=== PATIENT | male | born 1945 | race Caucasian/White ===

== ENCOUNTER 2018-01-30 07:27 | Day surgery (SDC) | payer MEDICARE, BC, SELFPAY ==
--- NOTE | 2018-01-28 09:25 | POEE_ITS ---
History of Present Illness Chief Complaint: Progressive decreased vision, right eye Narrative: Patient is a 72-year old male who presented with complaints of progressive decreased vision in both eyes, right eye worse than left. He notes significant difficulty with vision at both distance and near and has difficulty reading road signs. On examination he was noted to have bilateral nuclear cortical and posterior subcapsular cataracts with visual acuity of 20/200 in the right eye. The option of cataract surgery was offered to the patient and he felt he was symptomatic enough that he wished to proceed. NOTE: The Chief Complaint, HPI, Past Medical History, Past Surgical History, Family History, Social History, Medications, and complete Ophthalmic Exam with detailed Assessment and Plan have already been documented in the patient's outpatient ophthalmic record and are not covered again in detail here. PFSH Family History Mother TIA (transient ischemic attack) Grandmother Colon cancer Glaucoma Medical History Nuclear sclerotic cataract of right eye (Acute) Cortical cataract of right eye (Acute) Posterior subcapsular age-related cataract, right eye (Acute) Social History Smoking/Tobacco Use Status: Never Surgical History EGD - MAC (04/15/16) colostomy take down sigmoid resection Meds Home Medications Medication Instructions Recorded Confirmed Type atorvastatin 40 mg PO HS tab-cap 08/11/15 01/25/18 History metoprolol succinate 50 mg PO .12 NOON tab-cap 08/11/15 01/25/18 History nitroglycerin [Nitrostat] 0.4 mg SUBLINGUAL DIRECTED 08/11/15 01/25/18 History tab-cap omeprazole 20 mg PO DAILY tab-cap 08/11/15 01/25/18 History isosorbide mononitrate 30 mg PO DAILY 01/17/17 01/25/18 History lisinopril 5 mg PO DAILY tab-cap 01/17/17 01/25/18 History magnesium oxide 400 mg PO DAILY 01/17/17 01/25/18 History acetaminophen [Mapap Extra 1,000 mg PO Q8H #100 tab 04/23/17 01/26/18 Rx Strength] aspirin 162 mg PO BID #120 tabec 04/23/17 01/25/18 Rx indomethacin 25 mg PO TID PRN 01/25/18 01/25/18 History Allergies Allergy/AdvReac Type Severity Reaction Status Date / Time celecoxib [From Celebrex] Allergy Intermediate LIP Unverified 01/25/18 08:48 SWELLING, ITCHY PALMS penicillin V Allergy Intermediate hives Unverified 01/25/18 08:48 oxycodone HCl [From Percocet] AdvReac Mild Nausea Unverified 01/25/18 08:48 Exam OCULAR EXAM:: Visual acuity at distance: Best corrected visual acuity 20/50 OD, 20/40 OS Pupils: Pupils equal, round, and reactive without afferent pupillary defect IOP: 15 OD 16 OS Extraocular Motility: Normal Pertinent Slit Lamp Findings: Significant for pupils dilating to 6.5 mm OU. 2+ nuclear with 1+ cortical and trace posterior subcapsular cataract OU. Dilated Funduscopic Examination: Disc cupping is 0.4 OU with good color. The optic nerves have good perfusion and normal color. The retinal vasculature is normal without significant tortuosity or abnormality. The maculas are normal in appearance with normal contour and foveal reflex appropriate for age. The peripheral retina and vitreous are normal. BRIGHTNESS ACUITY TESTING (BAT):: Off right eye 20/200 Low: 20/200 Medium: 20/400 High: 20/400 Assessment and Plan (1) Posterior subcapsular age-related cataract, right eye: Current visit: No Status: Acute Assessment: Visually significant cataract, right eye. Plan: Cataract extraction with intraocular lens implantation, right eye (2) Cortical cataract of right eye: Current visit: No Status: Acute Assessment: Visually significant cataract, right eye. Plan: Cataract extraction with intraocular lens implantation, right eye (3) Nuclear sclerotic cataract of right eye: Current visit: No Status: Acute Assessment: Visually significant cataract, right eye. Plan: Cataract extraction with intraocular lens implantation, right eye Note: NOTE:: The details of the planned surgery, including the risks, indications, limitations,expectations,outcome and possible complications were explained to the patient. The patient understands the complications including, but not limited to: infection, hemorrhage, posterior dislocation of the lens or nuclear fragments which may require the intervention of a vitreoretinal surgeon, possible loss of the eye, or from anesthetic complications. The patient has been made aware of the option of not having surgery, that vision following surgery may not be equal to that prior to surgery, and that the planned surgery may not achieve the intended results. Following this discussion, which the patient appeared to understand, the patient wishes to proceed with cataract surgery with lens implantation of the affected eye to improve and maximize vision.
[2018-01-30 07:45] VITALS: BP 150/88; PULSE 83; RESP 18; TEMP 36.5; O2SAT 96
[2018-01-30] MEDS: Lidocaine 2% Jelly 6 ML SYR (09:01)
[2018-01-30] MEDS: Lidocaine 1% Pres-Free 5 ML VIAL (09:08)
[2018-01-30] MEDS: Balanced Salt Soln.-PLUS 500 ML BAG (09:09)
[2018-01-30] MEDS: Povidone-Iodine Ophth 30 ML BTL (09:23)
--- NOTE | 2018-01-30 09:33 | W.PM.DSUDISC ---
Discharge Plan Discharge Details Attending Provider: Carmelo Boggs Primary Care Provider: Carmelo Barrientos Home Meds and New Rx's Prescriptions: No Action omeprazole 10 MG capsule,delayed release(DR/EC) 20 mg PO DAILY RF: 0 nitroglycerin [Nitrostat] 0.4 MG tablet, sublingual 0.4 mg Sublingual DIRECTED RF: 0 atorvastatin 40 MG tablet 40 mg PO HS RF: 0 metoprolol succinate 50 MG tablet extended release 24 hr 50 mg PO .12 NOON RF: 0 isosorbide mononitrate 20 MG tablet 30 mg PO DAILY RF: 0 magnesium oxide 400 MG tablet 400 mg PO DAILY RF: 0 lisinopril 5 MG tablet 5 mg PO DAILY RF: 0 aspirin 81 MG tablet,delayed release (DR/EC) 162 mg PO BID Qty: 120 RF: 0 indomethacin 25 mg Capsule 25 mg PO TID PRNRF: 0 acetaminophen [Mapap Extra Strength] 500 MG tablet 1,000 mg PO Q8H PRNRF: 0 Discharge Instructions Stand Alone Forms: Post-op Topical Cataract, Aleksandra Matta (DSU) DS: Diagnosis Discharge Diagnosis (1) Posterior subcapsular age-related cataract, right eye: Status: Resolved (2) Cortical cataract of right eye: Status: Resolved (3) Nuclear sclerotic cataract of right eye: Status: Resolved (4) Status post cataract extraction and insertion of intraocular lens of right eye: Status: Chronic
--- NOTE | 2018-01-30 09:34 | W.PM.OP ---
Date of service: 01/30/18 Time of Service: 09:34 Operative Note DATE OF PROCEDURE: 01/30/18 PRE-OP DIAGNOSIS: Cataract, right eye POST-OP DIAGNOSIS: same SURGEON: Carmelo Boggs ANESTHESIA: MAC and local (sub-tenon's anesthetic infiltration) PATHOLOGY: none sent COMPLICATIONS: None Patient was transported to: same day Patient's condition: stable Implants: [employer] Pepe [employer] / [employer] Tecnis ZCB00 Indications: Progressive decreased vision due to cataract, right eye Procedure Description: CATARACT SURGERY OPERATIVE REPORT PREOPERATIVE DIAGNOSIS: Nuclear/cortical/posterior subcapsular cataract, right eye POSTOPERATIVE DIAGNOSIS: Same OPERATION: Cataract extraction using phacoemulsification with posterior chamber intraocular lens implant, right eye. IOL: IOL Consumer Insights Intern/Model: J&J Vision / ALMA Tecnis ZCB00 IOL Power: + 17.0 diopters IOL Serial Number: [id number] Optic Diameter: 6.0mm Haptic/Overall Diameter: 13.0mm PHACO INFO: Jesse Geostellarurion Vision System with OZil and Active Fluidics Cumulative Dispersed Energy (CDE): 14.34 seconds SURGEON: Carmelo Boggs MD, YUSUF ANESTHESIA: Monitored Anesthesia Care (MAC), with local sub-tenon's anesthetic infiltration COMPLICATIONS: None SPECIMENS: None INDICATIONS FOR PROCEDURE: The patient is a 72-year-old male with history of myopia who has had progressive decreased vision at both distance and near in both eyes. He has significant difficulty driving and reading road signs. Visual acuity measured 20/200 in the right eye in the presence of nuclear cortical and posterior subcapsular cataract. The option of cataract surgery was offered to the patient and he wished to proceed. PROCEDURE: The correct surgical eye was identified and marked as the right eye and the pupil was dilated in the preoperative area using mydriatics, cycloplegics, and NSAIDS (except in aspirin allergic patients). The dilated pupil size was 8.0 mm. Oral sedation was administered in the form of an Imprimis MKO Melt (midazolam 3mg/ketamine 25mg/ondansetron 2mg). The patient was brought to the operating room where cardiopulmonary monitoring was instituted and surgical time-out was performed, confirming the correct operative eye and IOL power. Topical anesthesia was administered and ophthalmic povidone-iodine 5% was instilled into the conjunctival fornices. Lidocaine gel was applied to the cornea and the andrade-ocular area was prepped with Betadine 10% solution and draped in the usual sterile fashion for intraocular surgery. Steri-strips were used to cover the lashes and lid margins and an adhesive eye drape was placed. Care was taken to isolate the lashes and lid margins under the Steri-strips and adhesive eye drape. A lid speculum was placed between the lids of the operative eye and the Jewel-Valentin operating microscope was maneuvered into position. Justin scissors were then used to make a conjunctival buttonhole approximately 6mm posterior to the limbus in the inferonasal quadrant. Blunt dissection was carried out to expose bare sclera, and a blunt-tipped sub-tenon?s anesthesia cannula was introduced and passed posteriorly along the globe where non-preserved plain lidocaine was injected into posterior sub-Tenon?s space. A sideport knife was used to make a paracentesis port at the 7:00 postion and the anterior chamber was filled with Healon GV. A 2.4mm keratome knife was used to create a half-thickness groove at the limbus and then to construct a three-plane near-clear corneal tunnel extending 2.0mm into clear cornea at the 10:00 position. A flap was raised on the anterior capsule and capsulorhexis forceps were used to complete a continuous curvilinear capsulorhexis of 5.0 mm. Balanced salt solution was then used to perform cortical cleaving hydrodissection and nuclear hydrodelineation until the lens could be freely rotated within the capsular bag. The lens nucleus was then disassembled and removed within the capsular bag and iris plane using phacoemulsification. Residual cortical material was removed using the 45-degree angled silicone I/A tip with 0.3mm port. The posterior capsule was carefully polished to remove as much residual lens epithelial cells as safely possible. The capsular bag was then inflated and the anterior chamber deepened with viscoelastic. The lens implant described above was inserted into the capsular bag using the ALMA [place] Injector. A Kuglen hook was used to dial the IOL into position. Residual viscoelastic was then removed first from posterior to the IOL, then from the anterior chamber using the I/A handpiece. The lens implant was noted to center nicely within the capsular bag. The incisions were stromally hydrated, and the anterior chamber was reformed using BSS. Then 0.4cc of moxifloxacin 1.5mg/ml were injected into the capsular bag and anterior chamber. The incisions were checked with a Weck spear and found to be secure. Several drops of ophthalmic povidone-iodine 5% were then applied to the eye followed by two drops of Imprimis combination moxifloxacin/dexamethasone solution. The drapes were removed and a clear plastic protective eye shield was placed over the eye. The patient was then returned to Same Day Surgery in stable condition.
--- NOTE | 2018-01-30 09:37 | ROE_ITS ---
Date of service: 01/30/18 Time of Service: 09:34 Operative Note DATE OF PROCEDURE: 01/30/18 PRE-OP DIAGNOSIS: Cataract, right eye POST-OP DIAGNOSIS: same SURGEON: Carmelo Boggs ANESTHESIA: MAC and local (sub-tenon's anesthetic infiltration) PATHOLOGY: none sent COMPLICATIONS: None Patient was transported to: same day Patient's condition: stable Implants: Pe[employer] Pepe Vision / [employer] Opt[employer] Tecnis ZCB00 Indications: Progressive decreased vision due to cataract, right eye Procedure Description: CATARACT SURGERY OPERATIVE REPORT PREOPERATIVE DIAGNOSIS: Nuclear/cortical/posterior subcapsular cataract, right eye POSTOPERATIVE DIAGNOSIS: Same OPERATION: Cataract extraction using phacoemulsification with posterior chamber intraocular lens implant, right eye. IOL: IOL Food Assembler Kitchen/Model: J&J Vision / ALMA Tecnis ZCB00 IOL Power: + 17.0 diopters IOL Serial Number: [id number] Optic Diameter: 6.0mm Haptic/Overall Diameter: 13.0mm PHACO INFO: Jesse CellScapeurion Vision System with OZil and Active Fluidics Cumulative Dispersed Energy (CDE): 14.34 seconds SURGEON: Carmeol Boggs MD, YUSUF ANESTHESIA: Monitored Anesthesia Care (MAC), with local sub-tenon's anesthetic infiltration COMPLICATIONS: None SPECIMENS: None INDICATIONS FOR PROCEDURE: The patient is a 72-year-old male with history of myopia who has had progressive decreased vision at both distance and near in both eyes. He has significant difficulty driving and reading road signs. Visual acuity measured 20/200 in the right eye in the presence of nuclear cortical and posterior subcapsular cataract. The option of cataract surgery was offered to the patient and he wished to proceed. PROCEDURE: The correct surgical eye was identified and marked as the right eye and the pupil was dilated in the preoperative area using mydriatics, cycloplegics, and NSAIDS (except in aspirin allergic patients). The dilated pupil size was 8.0 mm. Oral sedation was administered in the form of an Imprimis MKO Melt (midazolam 3mg/ketamine 25mg/ondansetron 2mg). The patient was brought to the operating room where cardiopulmonary monitoring was instituted and surgical time-out was performed, confirming the correct operative eye and IOL power. Topical anesthesia was administered and ophthalmic povidone-iodine 5% was instilled into the conjunctival fornices. Lidocaine gel was applied to the cornea and the andrade-ocular area was prepped with Betadine 10% solution and draped in the usual sterile fashion for intraocular surgery. Steri-strips were used to cover the lashes and lid margins and an adhesive eye drape was placed. Care was taken to isolate the lashes and lid margins under the Steri-strips and adhesive eye drape. A lid speculum was placed between the lids of the operative eye and the Jewel-Valentin operating microscope was maneuvered into position. Justin scissors were then used to make a conjunctival buttonhole approximately 6mm posterior to the limbus in the inferonasal quadrant. Blunt dissection was carried out to expose bare sclera, and a blunt-tipped sub-tenon? s anesthesia cannula was introduced and passed posteriorly along the globe where non-preserved plain lidocaine was injected into posterior sub-Tenon?s space. A sideport knife was used to make a paracentesis port at the 7:00 postion and the anterior chamber was filled with Healon GV. A 2.4mm keratome knife was used to create a half-thickness groove at the limbus and then to construct a three-plane near-clear corneal tunnel extending 2.0mm into clear cornea at the 10:00 position. A flap was raised on the anterior capsule and capsulorhexis forceps were used to complete a continuous curvilinear capsulorhexis of 5.0 mm. Balanced salt solution was then used to perform cortical cleaving hydrodissection and nuclear hydrodelineation until the lens could be freely rotated within the capsular bag. The lens nucleus was then disassembled and removed within the capsular bag and iris plane using phacoemulsification. Residual cortical material was removed using the 45-degree angled silicone I/A tip with 0.3mm port. The posterior capsule was carefully polished to remove as much residual lens epithelial cells as safely possible. The capsular bag was then inflated and the anterior chamber deepened with viscoelastic. The lens implant described above was inserted into the capsular bag using the ALMA [place] Injector. A Kuglen hook was used to dial the IOL into position. Residual viscoelastic was then removed first from posterior to the IOL, then from the anterior chamber using the I/A handpiece. The lens implant was noted to center nicely within the capsular bag. The incisions were stromally hydrated , and the anterior chamber was reformed using BSS. Then 0.4cc of moxifloxacin 1.5mg/ml were injected into the capsular bag and anterior chamber. The incisions were checked with a Weck spear and found to be secure. Several drops of ophthalmic povidone-iodine 5% were then applied to the eye followed by two drops of Imprimis combination moxifloxacin/dexamethasone solution. The drapes were removed and a clear plastic protective eye shield was placed over the eye. The patient was then returned to Same Day Surgery in stable condition.
[2018-01-30 10:00] VITALS: BP 119/68; PULSE 82; RESP 16; TEMP 36.6; O2SAT 94
== END 2018-01-30 10:10 | disposition home or self-care (01) ==
LOC: SUR 07:29
PROVIDERS: PCP Family Medicine; Visit Provider Ophthalmology
PROC: (CPT 66984; principal; 2018-01-30 09:30)
DX: H25.811 Combined forms of age-related cataract, right eye (principal); K21.9 Gastro-esophageal reflux disease without esophagitis; I10 Essential (primary) hypertension
CPT/HCPCS: 66984; V2632

== ENCOUNTER 2018-02-13 08:18 | Day surgery (SDC) | payer MEDICARE, BC, SELFPAY ==
--- NOTE | 2018-02-12 09:23 | POEE_ITS ---
History of Present Illness Chief Complaint: Progressive decreased vision, left eye Narrative: The patient is a 72-year-old male with history of progressive decreased vision in both eyes at both distance and near. He has significant difficulty with glare. On examination he was noted to have bilateral nuclear cortical and posterior subcapsular cataracts with visual acuity of 20/200. The option of cataract surgery was offered to the patient and he wished to proceed, undergoing cataract surgery in the right eye on 01/30/2018. Postoperatively he has regained uncorrected visual acuity of 20/20 in the right eye. He now presents for cataract surgery in the left eye. NOTE: The Chief Complaint, HPI, Past Medical History, Past Surgical History, Family History, Social History, Medications, and complete Ophthalmic Exam with detailed Assessment and Plan have already been documented in the patient's outpatient ophthalmic record and are not covered again in detail here. PFSH Family History Mother TIA (transient ischemic attack) Grandmother Colon cancer Glaucoma Medical History Cortical cataract of left eye (Acute) Nuclear sclerotic cataract of left eye (Acute) Posterior subcapsular age-related cataract of left eye (Acute) Social History Smoking/Tobacco Use Status: Never Surgical History Status post cataract extraction and insertion of intraocular lens of right eye ( Chronic 01/30/18) EGD - MAC (04/15/16) colostomy take down sigmoid resection Meds Home Medications Medication Instructions Recorded Confirmed Type atorvastatin 40 mg PO HS tab-cap 08/11/15 01/30/18 History metoprolol succinate 50 mg PO .12 NOON tab-cap 08/11/15 01/30/18 History nitroglycerin [Nitrostat] 0.4 mg SUBLINGUAL DIRECTED 08/11/15 01/30/18 History tab-cap omeprazole 20 mg PO DAILY tab-cap 08/11/15 01/30/18 History isosorbide mononitrate 30 mg PO DAILY 01/17/17 01/30/18 History lisinopril 5 mg PO DAILY tab-cap 01/17/17 01/30/18 History magnesium oxide 400 mg PO DAILY 01/17/17 01/30/18 History aspirin 162 mg PO BID #120 tabec 04/23/17 01/30/18 Rx indomethacin 25 mg PO TID PRN 01/25/18 01/30/18 History acetaminophen [Mapap Extra 1,000 mg PO Q8H PRN 01/30/18 01/30/18 History Strength] Allergies Allergy/AdvReac Type Severity Reaction Status Date / Time celecoxib [From Celebrex] Allergy Intermediate LIP Unverified 01/30/18 07:34 SWELLING, ITCHY PALMS penicillin V Allergy Intermediate hives Unverified 01/30/18 07:34 oxycodone HCl [From Percocet] AdvReac Mild Nausea Unverified 01/30/18 07:34 Exam OCULAR EXAM:: Visual acuity at distance: Uncorrected 20/20 right eye, 20/200 left eye Pupils: Pupils equal, round, and reactive without afferent pupillary defect IOP: 15 OD 16 OS Extraocular Motility: Normal Pertinent Slit Lamp Findings: Significant for pupils dilating to 6.5 mm OU. 2+ nuclear cataract OS with 1+ cortical and trace posterior subcapsular cataract. In the right eye there is a well-positioned PCIOL with clear posterior capsule. Dilated Funduscopic Examination: Disc cupping is 0.4 OU with good color. Normal fundus BRIGHTNESS ACUITY TESTING (BAT):: Off left eye corrected to 20/40 Low: 20/400 Medium: 20/400 High: Less than 20/400 Assessment and Plan (1) Posterior subcapsular age-related cataract of left eye: Current visit: No Status: Acute Assessment: Visually significant cataract, left eye. Plan: Cataract extraction with intraocular lens implantation, left eye (2) Nuclear sclerotic cataract of left eye: Current visit: No Status: Acute Assessment: Visually significant cataract, left eye. Plan: Cataract extraction with intraocular lens implantation, left eye (3) Cortical cataract of left eye: Current visit: No Status: Acute Assessment: Visually significant cataract, left eye. Plan: Cataract extraction with intraocular lens implantation, left eye Note: NOTE:: The details of the planned surgery, including the risks, indications, limitations,expectations,outcome and possible complications were explained to the patient. The patient understands the complications including, but not limited to: infection, hemorrhage, posterior dislocation of the lens or nuclear fragments which may require the intervention of a vitreoretinal surgeon, possible loss of the eye, or from anesthetic complications. The patient has been made aware of the option of not having surgery, that vision following surgery may not be equal to that prior to surgery, and that the planned surgery may not achieve the intended results. Following this discussion, which the patient appeared to understand, the patient wishes to proceed with cataract surgery with lens implantation of the affected eye to improve and maximize vision.
[2018-02-13 08:20] VITALS: BP 140/84; PULSE 91; RESP 18; TEMP 36; O2SAT 97
[2018-02-13] MEDS: Lidocaine 2% Jelly 6 ML SYR (09:27)
[2018-02-13] MEDS: Lidocaine 1% Pres-Free 5 ML VIAL (09:32)
[2018-02-13] MEDS: Balanced Salt Soln.-PLUS 500 ML BAG (09:32)
[2018-02-13] MEDS: Povidone-Iodine Ophth 30 ML BTL (09:50)
--- NOTE | 2018-02-13 09:58 | W.PM.DSUDISC ---
Discharge Plan Discharge Details Attending Provider: Carmelo Boggs Primary Care Provider: Carmelo Barrientos Home Meds and New Rx's Prescriptions: No Action omeprazole 10 MG capsule,delayed release(DR/EC) 20 mg PO DAILY RF: 0 nitroglycerin [Nitrostat] 0.4 MG tablet, sublingual 0.4 mg Sublingual DIRECTED RF: 0 atorvastatin 40 MG tablet 40 mg PO HS RF: 0 metoprolol succinate 50 MG tablet extended release 24 hr 50 mg PO .12 NOON RF: 0 isosorbide mononitrate 20 MG tablet 30 mg PO DAILY RF: 0 magnesium oxide 400 MG tablet 400 mg PO DAILY RF: 0 lisinopril 5 MG tablet 5 mg PO DAILY RF: 0 aspirin 81 MG tablet,delayed release (DR/EC) 162 mg PO BID Qty: 120 RF: 0 indomethacin 25 mg Capsule 25 mg PO TID PRNRF: 0 acetaminophen [Mapap Extra Strength] 500 MG tablet 1,000 mg PO Q8H PRNRF: 0 Discharge Instructions Stand Alone Forms: Post-op Topical Cataract, Aleksandra Matta (DSU) DS: Diagnosis Discharge Diagnosis (1) Posterior subcapsular age-related cataract of left eye: Status: Resolved (2) Nuclear sclerotic cataract of left eye: Status: Resolved (3) Cortical cataract of left eye: Status: Resolved (4) Status post cataract extraction and insertion of intraocular lens of left eye: Status: Chronic
--- NOTE | 2018-02-13 09:58 | W.PM.OP ---
Date of service: 02/13/18 Time of Service: 09:59 Operative Note DATE OF PROCEDURE: 02/13/18 PRE-OP DIAGNOSIS: Cataract, left eye POST-OP DIAGNOSIS: same PROCEDURE: Cataract extraction using phacoemulsification with intraocular lens implant, left eye SURGEON: Carmelo Boggs ANESTHESIA: MAC and local (sub-tenon's anesthetic infiltration) PATHOLOGY: none sent COMPLICATIONS: None Patient was transported to: same day Patient's condition: stable Implants: Pepe [employer] Pepe Vision / [employer] Tecnis ZCB00 Indications: Progressive decreased vision due to cataract, left eye Procedure Description: CATARACT SURGERY OPERATIVE REPORT PREOPERATIVE DIAGNOSIS: Nuclear/cortical/posterior subcapsular cataract, left eye, symptomatic POSTOPERATIVE DIAGNOSIS: Same OPERATION: Cataract extraction using phacoemulsification with posterior chamber intraocular lens implant, left eye. IOL: IOL Director Home/Model: J&J Vision / ALMA Tecnis ZCB00 IOL Power: + 18.0 diopters IOL Serial Number: [id number] [birth year]/08/1991 04/11/2008 Optic Diameter: 6.0mm Haptic/Overall Diameter: 13.0mm PHACO INFO: Jesse [employer]Ret[employer]urion Vision System with OZil and Active Fluidics Cumulative Dispersed Energy (CDE): 9.90 seconds SURGEON: Carmelo Boggs MD, YUSUF ANESTHESIA: Monitored Anesthesia Care (MAC), with local sub-tenon's anesthetic infiltration COMPLICATIONS: None SPECIMENS: None INDICATIONS FOR PROCEDURE: The patient is a 72-year-old male with history of myopia and symptomatic bilateral nuclear cortical and posterior subcapsular cataracts. He is already undergone cataract surgery in his right eye on 01/30/2018. He desired a mini monovision postoperative refractive target with right eye for distance, left eye for intermediate. He is doing well status post cataract surgery in his right eye and now presents for cataract surgery in the left. PROCEDURE: The correct surgical eye was identified and marked as the left eye and the pupil was dilated in the preoperative area using mydriatics, cycloplegics, and NSAIDS (except in aspirin allergic patients). The dilated pupil size was 7.0 mm. Oral sedation was administered in the form of an Imprimis MKO Melt (midazolam 3mg/ketamine 25mg/ondansetron 2mg). The patient was brought to the operating room where cardiopulmonary monitoring was instituted and surgical time-out was performed, confirming the correct operative eye and IOL power. Topical anesthesia was administered and ophthalmic povidone-iodine 5% was instilled into the conjunctival fornices. Lidocaine gel was applied to the cornea and the andrade-ocular area was prepped with Betadine 10% solution and draped in the usual sterile fashion for intraocular surgery. Steri-strips were used to cover the lashes and lid margins and an adhesive eye drape was placed. Care was taken to isolate the lashes and lid margins under the Steri-strips and adhesive eye drape. A lid speculum was placed between the lids of the operative eye and the Jewel-Valentin operating microscope was maneuvered into position. Justin scissors were then used to make a conjunctival buttonhole approximately 6mm posterior to the limbus in the inferonasal quadrant. Blunt dissection was carried out to expose bare sclera, and a blunt-tipped sub-tenon?s anesthesia cannula was introduced and passed posteriorly along the globe where non-preserved plain lidocaine was injected into posterior sub-Tenon?s space. A sideport knife was used to make a paracentesis port at the 12:00 postion and the anterior chamber was filled with Healon GV. A 2.4mm keratome knife was used to create a half-thickness groove at the limbus and then to construct a three-plane near-clear corneal tunnel extending 2.0mm into clear cornea at the 3:00 position. A flap was raised on the anterior capsule and capsulorhexis forceps were used to complete a continuous curvilinear capsulorhexis of 5.0 mm. Balanced salt solution was then used to perform cortical cleaving hydrodissection and nuclear hydrodelineation until the lens could be freely rotated within the capsular bag. The lens nucleus was then disassembled and removed within the capsular bag and iris plane using phacoemulsification. Residual cortical material was removed using the 45-degree angled silicone I/A tip with 0.3mm port. The posterior capsule was carefully polished to remove as much residual lens epithelial cells as safely possible. The capsular bag was then inflated and the anterior chamber deepened with viscoelastic. The lens implant described above was inserted into the capsular bag using the ALMA Hatley Injector. A Kuglen hook was used to dial the IOL into position. Residual viscoelastic was then removed first from posterior to the IOL, then from the anterior chamber using the I/A handpiece. The lens implant was noted to center nicely within the capsular bag. The incisions were stromally hydrated, and the anterior chamber was reformed using BSS. Then 0.4cc of moxifloxacin 1.5mg/ml were injected into the capsular bag and anterior chamber. The incisions were checked with a Weck spear and found to be secure. Several drops of ophthalmic povidone-iodine 5% were then applied to the eye followed by two drops of Imprimis combination moxifloxacin/dexamethasone solution. The drapes were removed and a clear plastic protective eye shield was placed over the eye. The patient was then returned to Same Day Surgery in stable condition.
--- NOTE | 2018-02-13 10:01 | ROE_ITS ---
Date of service: 02/13/18 Time of Service: 09:59 Operative Note DATE OF PROCEDURE: 02/13/18 PRE-OP DIAGNOSIS: Cataract, left eye POST-OP DIAGNOSIS: same PROCEDURE: Cataract extraction using phacoemulsification with intraocular lens implant, left eye SURGEON: Carmelo Boggs ANESTHESIA: MAC and local (sub-tenon's anesthetic infiltration) PATHOLOGY: none sent COMPLICATIONS: None Patient was transported to: same day Patient's condition: stable Implants: Pe[employer] Pepe Vision / [employer] Tecnis ZCB00 Indications: Progressive decreased vision due to cataract, left eye Procedure Description: CATARACT SURGERY OPERATIVE REPORT PREOPERATIVE DIAGNOSIS: Nuclear/cortical/posterior subcapsular cataract, left eye, symptomatic POSTOPERATIVE DIAGNOSIS: Same OPERATION: Cataract extraction using phacoemulsification with posterior chamber intraocular lens implant, left eye. IOL: IOL Trommel Tender/Model: J&J Vision / ALMA Tecnis ZCB00 IOL Power: + 18.0 diopters IOL Serial Number: [id number] 12/08/1991 04/11/2008 Optic Diameter: 6.0mm Haptic/Overall Diameter: 13.0mm PHACO INFO: Jesse [employer] Exoticaurion Vision System with OZil and Active Fluidics Cumulative Dispersed Energy (CDE): 9.90 seconds SURGEON: Carmelo Boggs MD, YUSUF ANESTHESIA: Monitored Anesthesia Care (MAC), with local sub-tenon's anesthetic infiltration COMPLICATIONS: None SPECIMENS: None INDICATIONS FOR PROCEDURE: The patient is a 72-year-old male with history of myopia and symptomatic bilateral nuclear cortical and posterior subcapsular cataracts. He is already undergone cataract surgery in his right eye on 01/30/2018. He desired a mini monovision postoperative refractive target with right eye for distance, left eye for intermediate. He is doing well status post cataract surgery in his right eye and now presents for cataract surgery in the left. PROCEDURE: The correct surgical eye was identified and marked as the left eye and the pupil was dilated in the preoperative area using mydriatics, cycloplegics, and NSAIDS (except in aspirin allergic patients). The dilated pupil size was 7.0 mm. Oral sedation was administered in the form of an Imprimis MKO Melt (midazolam 3mg/ketamine 25mg/ondansetron 2mg). The patient was brought to the operating room where cardiopulmonary monitoring was instituted and surgical time-out was performed, confirming the correct operative eye and IOL power. Topical anesthesia was administered and ophthalmic povidone-iodine 5% was instilled into the conjunctival fornices. Lidocaine gel was applied to the cornea and the andrade-ocular area was prepped with Betadine 10% solution and draped in the usual sterile fashion for intraocular surgery. Steri-strips were used to cover the lashes and lid margins and an adhesive eye drape was placed. Care was taken to isolate the lashes and lid margins under the Steri-strips and adhesive eye drape. A lid speculum was placed between the lids of the operative eye and the Jewel-Valentin operating microscope was maneuvered into position. Justin scissors were then used to make a conjunctival buttonhole approximately 6mm posterior to the limbus in the inferonasal quadrant. Blunt dissection was carried out to expose bare sclera, and a blunt-tipped sub-tenon? s anesthesia cannula was introduced and passed posteriorly along the globe where non-preserved plain lidocaine was injected into posterior sub-Tenon?s space. A sideport knife was used to make a paracentesis port at the 12:00 postion and the anterior chamber was filled with Healon GV. A 2.4mm keratome knife was used to create a half-thickness groove at the limbus and then to construct a three-plane near-clear corneal tunnel extending 2.0mm into clear cornea at the 3:00 position. A flap was raised on the anterior capsule and capsulorhexis forceps were used to complete a continuous curvilinear capsulorhexis of 5.0 mm. Balanced salt solution was then used to perform cortical cleaving hydrodissection and nuclear hydrodelineation until the lens could be freely rotated within the capsular bag. The lens nucleus was then disassembled and removed within the capsular bag and iris plane using phacoemulsification. Residual cortical material was removed using the 45-degree angled silicone I/A tip with 0.3mm port. The posterior capsule was carefully polished to remove as much residual lens epithelial cells as safely possible. The capsular bag was then inflated and the anterior chamber deepened with viscoelastic. The lens implant described above was inserted into the capsular bag using the ALMA Campo Injector. A Kuglen hook was used to dial the IOL into position. Residual viscoelastic was then removed first from posterior to the IOL, then from the anterior chamber using the I/A handpiece. The lens implant was noted to center nicely within the capsular bag. The incisions were stromally hydrated , and the anterior chamber was reformed using BSS. Then 0.4cc of moxifloxacin 1.5mg/ml were injected into the capsular bag and anterior chamber. The incisions were checked with a Weck spear and found to be secure. Several drops of ophthalmic povidone-iodine 5% were then applied to the eye followed by two drops of Imprimis combination moxifloxacin/dexamethasone solution. The drapes were removed and a clear plastic protective eye shield was placed over the eye. The patient was then returned to Same Day Surgery in stable condition.
[2018-02-13 10:15] VITALS: BP 116/61; PULSE 89; RESP 18; TEMP 36.6; O2SAT 95
== END 2018-02-13 10:25 | disposition home or self-care (01) ==
LOC: SUR 08:19
PROVIDERS: PCP Family Medicine; Visit Provider Ophthalmology
PROC: (CPT 66984; principal; 2018-02-13 10:30)
DX: H25.812 Combined forms of age-related cataract, left eye (principal); Z98.41 Cataract extraction status, right eye; Z96.1 Presence of intraocular lens; K21.9 Gastro-esophageal reflux disease without esophagitis; I10 Essential (primary) hypertension
CPT/HCPCS: 66984; V2632

== ENCOUNTER 2018-03-13 14:09 | Outpatient (CLI) | payer MEDICARE, BC, SELFPAY ==
--- NOTE | 2018-03-13 14:00 | DI.RAD_ITS ---
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 The left prosthesis and surrounding bone are unremarkable. There is again noted to be abnormal increased lucency around the femoral component of the prosthesis with some lateral migration of the femoral component with severe cortical thinning. Acetabular component is unremarkable. There is heterotopic bone formation around the greater trochanter. IMPRESSION: No change in appearance of righty hip prosthesis with lateral migration of the femoral component and adjacent cortical thinning.
--- NOTE | 2018-03-13 14:00 | DI.RAD_ITS ---
SYMPTOM/DIAGNOSIS: F/U LT TKA LEFT KNEE: Comparison is made with 06 May 2017. There has been no significant change in the left total knee prosthesis or surrounding bone.
== END 2018-03-13 14:29 ==
PROVIDERS: Visit Provider Student in an Organized Health Care Education/Training Program
DX: Z96.643 Presence of artificial hip joint, bilateral (principal); Z96.652 Presence of left artificial knee joint; Z47.1 Aftercare following joint replacement surgery; M25.551 Pain in right hip; T84.84XA Pain due to internal orthopedic prosthetic devices, implants and grafts, initial encounter
CPT/HCPCS: 73521; 99213; 73560

== ENCOUNTER 2018-03-29 08:57 | Observation (INO) | payer MEDICARE, BC, SELFPAY ==
[2018-03-29 09:05] VITALS: BP 155/81; PULSE 86; RESP 16; TEMP 36.5; O2SAT 98
--- NOTE | 2018-03-29 09:16 | W.ED.GENAD ---
Discharge Plan Disposition Patient Disposition: [facility]IENT Condition: Improving Discharge Details Chief Complaint: Orthopedic Clinical Impression: Acute right hip pain Primary Care Provider: Carmelo Barrientos ED Provider: James Mitchell Home Meds and New Rx's Prescriptions: No Action omeprazole 10 MG capsule,delayed release(DR/EC) 20 mg PO DAILY RF: 0 nitroglycerin [Nitrostat] 0.4 MG tablet, sublingual 0.4 mg Sublingual DIRECTED RF: 0 atorvastatin 40 MG tablet 40 mg PO HS RF: 0 metoprolol succinate 50 MG tablet extended release 24 hr 50 mg PO .12 NOON RF: 0 isosorbide mononitrate 20 MG tablet 30 mg PO DAILY RF: 0 magnesium oxide 400 MG tablet 400 mg PO DAILY RF: 0 lisinopril 5 MG tablet 5 mg PO DAILY RF: 0 aspirin 81 MG tablet,delayed release (DR/EC) 162 mg PO BID Qty: 120 RF: 0 indomethacin 25 mg Capsule 25 mg PO TID PRNRF: 0 acetaminophen [Mapap Extra Strength] 500 MG tablet 1,000 mg PO Q8H PRNRF: 0 Medical Decision Making 73-year-old male with right hip pain that accelerated through the night after he stumbled and fell in the garage yesterday evening. Did not injure himself in any other way. He has a history of a 25-year-old right hip prosthesis with a recent lateral migration and plan for revision with Dr. Gonzáles at [facility]. Over the night patient unable to bear weight. He arrives in moderate distress with reassuring vital signs, guarding of the right hip and tenderness with minimal movement and otherwise unremarkable exam. Patient was given parenteral analgesia, referred for x-ray which revealed known lateral migration of his femoral component of the prosthesis. Patient subsequent underwent CT scan to rule out occult fracture and was evaluated by Dr. Du in the emergency department who discussed with Dr Gonzáles at [facility]. Pt to have expedited followup for R hip revision with Dr. Gonzáles. The patient was offered admission which he initally thought he would decline but then subsequently requested admission due to ongoing pain and discomfort with ambulation despite use of crutches. Lab Data Lab results reviewed: Yes I reviewed the patient's lab results. Laboratory Results - last 24 hr 03/29/18 03/29/18 03/29/18 09:30 09:30 09:30 WBC 7.04 RBC 4.80 Hgb 14.0 Hct 42.2 MCV 87.9 MCH 29.2 MCHC 33.2 RDW 14.6 H Plt Count 194 MPV 10.9 Immature Gran % 0.1 Neutrophils % 76.1 Lymphocytes % 11.2 Monocytes % 8.7 Eosinophils % 3.6 Basophils % 0.3 Absolute Neutrophils 5.36 Absolute Lymphocytes 0.79 L Absolute Monocytes 0.61 Absolute Eosinophils 0.25 Absolute Basophils 0.02 APTT 24.6 Sodium 136 Potassium 3.9 Chloride 102 Carbon Dioxide 27.8 Anion Gap 6.2 BUN 19 H Creatinine 0.68 L Estimated GFR/1.73 m2 >= 60.00 Glucose 105 H Calcium 9.5 Total Bilirubin 0.8 AST 26 ALT 39 Alkaline Phosphatase 133 H Total Protein 7.1 Albumin 2.5 L HPI General Mode of arrival: ambulatory. Date/Time Provider Initiated Documentation: 03/29/18 08:59. Limitations to Documentation: no limitations. Information obtained by: patient. History of Present Illness 73 year old M presents to the emergency department with the chief complaint of Right hip pain after fall last night. , described as moderate, Quality is described as aching, and is localized to the right and lower extremity. Patient started experiencing this hour(s) and it has been constant. Immobilization improves symptom(s), Movement worsens symptoms . Patient notes no other symptoms.. Patient did receive the following treatments prior to arrival, NSAID Related Data Home Medications Medication Instructions Recorded Confirmed atorvastatin 40 mg PO HS tab-cap 08/11/15 03/13/18 metoprolol succinate 50 mg PO .12 NOON tab-cap 08/11/15 03/13/18 nitroglycerin [Nitrostat] 0.4 mg SUBLINGUAL DIRECTED 08/11/15 03/13/18 tab-cap omeprazole 20 mg PO DAILY tab-cap 08/11/15 03/13/18 isosorbide mononitrate 30 mg PO DAILY 01/17/17 03/13/18 lisinopril 5 mg PO DAILY tab-cap 01/17/17 03/13/18 magnesium oxide 400 mg PO DAILY 01/17/17 03/13/18 aspirin 162 mg PO BID #120 tabec 04/23/17 03/13/18 indomethacin 25 mg PO TID PRN 01/25/18 03/13/18 acetaminophen [Mapap Extra 1,000 mg PO Q8H PRN 01/30/18 03/13/18 Strength] Previous Rx's Medication Instructions Recorded aspirin 162 mg PO BID #120 tabec 04/23/17 Allergies Allergy/AdvReac Type Severity Reaction Status Date / Time celecoxib [From Celebrex] Allergy Intermediate LIP Verified 03/29/18 09:35 SWELLING, ITCHY PALMS penicillin V Allergy Intermediate hives Verified 03/29/18 09:35 oxycodone HCl [From Percocet] AdvReac Mild Nausea Verified 03/29/18 09:35 General Stated Complaint: Orthopedic PAULA: 4 Review of Systems Review of Systems 6 systems reviewed and otherwise negative [facility] Medical History Cortical cataract of left eye (Resolved) Nuclear sclerotic cataract of left eye (Resolved) Posterior subcapsular age-related cataract of left eye (Resolved) Surgical History Status post cataract extraction and insertion of intraocular lens of left eye (Chronic 02/13/18) Status post cataract extraction and insertion of intraocular lens of right eye (Chronic 01/30/18) EGD - MAC (04/15/16) colostomy take down sigmoid resection Family History Mother TIA (transient ischemic attack) Grandmother Colon cancer Glaucoma Social History Smoking/Tobacco Use Status: Never Exam Narrative Exam Narrative: GEN: awake, alert, oriented 3. Pleasant, well groomed, interactive. HEAD: Normocephalic, atraumatic ENT: Mucous membranes moist, oropharynx unremarkable, External ear exam unremarkable EYES: PERRL, EOMI NECK: Full ROM, no LOLA, no menigismus CHEST/RESP: Nontender, clear to auscultation bilateral, no wheeze/rhonchi/rales CARDIOVASCULAR: RRR, no murmur, rub tomy. 2+ Rad pulse bilateral ABDOMEN: Soft, nontender, no mass. +Bowel sounds EXT: 2+ DP bilaterally. Trace edema bilaterally. The right hip is tender to rotation. Patient is very guarded when attempting to move the right leg off the bed. Distal motor is 5 out of 5 bilaterally Neuro: Grossly normal neurologic exam, conversant, interactive. Psych: Speech fluent, thoughts congruent, affect normal Course Vital Signs Temperature 36.5 C 03/29/18 09:05 Pulse 86 03/29/18 09:05 Respiratory Rate 16 03/29/18 09:05 Blood Pressure 155/81 H 03/29/18 09:05 Pulse Oximetry 98 03/29/18 09:05 Temperature 36.5 C 03/29/18 09:05 Temperature Source Skin 03/29/18 09:05 Pulse 86 03/29/18 09:05 Respiratory Rate 16 03/29/18 09:05 Respiratory Effort 03/29/18 09:08 Blood Pressure 155/81 H 03/29/18 09:05 Blood Pressure Position Sitting 03/29/18 09:05 Pulse Oximetry 98 03/29/18 09:05 Oxygen Delivery Method Room Air 03/29/18 09:05 Oxygen Flow Rate 0 03/29/18 09:05 Pain Level 4 03/29/18 09:05
--- NOTE | 2018-03-29 09:19 | ED.GENADUL_ITS ---
Discharge Plan Disposition Patient Disposition: [facility] INPATIENT Condition: Improving Discharge Details Chief Complaint: Orthopedic Clinical Impression: Acute right hip pain Primary Care Provider: Carmelo Barrientos ED Provider: James Mitchell Home Meds and New Rx's Prescriptions: No Action omeprazole 10 MG capsule,delayed release(DR/EC) 20 mg PO DAILY RF: 0 nitroglycerin [Nitrostat] 0.4 MG tablet, sublingual 0.4 mg Sublingual DIRECTED RF: 0 atorvastatin 40 MG tablet 40 mg PO HS RF: 0 metoprolol succinate 50 MG tablet extended release 24 hr 50 mg PO .12 NOON RF: 0 isosorbide mononitrate 20 MG tablet 30 mg PO DAILY RF: 0 magnesium oxide 400 MG tablet 400 mg PO DAILY RF: 0 lisinopril 5 MG tablet 5 mg PO DAILY RF: 0 aspirin 81 MG tablet,delayed release (DR/EC) 162 mg PO BID Qty: 120 RF: 0 indomethacin 25 mg Capsule 25 mg PO TID PRNRF: 0 acetaminophen [Mapap Extra Strength] 500 MG tablet 1,000 mg PO Q8H PRNRF: 0 Medical Decision Making 73-year-old male with right hip pain that accelerated through the night after he stumbled and fell in the garage yesterday evening. Did not injure himself in any other way. He has a history of a 25-year-old right hip prosthesis with a recent lateral migration and plan for revision with Dr. Gonzáles at [facility]. Over the night patient unable to bear weight. He arrives in moderate distress with reassuring vital signs, guarding of the right hip and tenderness with minimal movement and otherwise unremarkable exam. Patient was given parenteral analgesia, referred for x-ray which revealed known lateral migration of his femoral component of the prosthesis. Patient subsequent underwent CT scan to rule out occult fracture and was evaluated by Dr. Du in the emergency department who discussed with Dr Gonzáles at [facility]. Pt to have expedited followup for R hip revision with Dr. Gonzáles. The patient was offered admission which he initally thought he would decline but then subsequently requested admission due to ongoing pain and discomfort with ambulation despite use of crutches. Lab Data Lab results reviewed: Yes I reviewed the patient's lab results. Laboratory Results - last 24 hr 03/29/18 03/29/18 03/29/18 09:30 09:30 09:30 WBC 7.04 RBC 4.80 Hgb 14.0 Hct 42.2 MCV 87.9 MCH 29.2 MCHC 33.2 RDW 14.6 H Plt Count 194 MPV 10.9 Immature Gran % 0.1 Neutrophils % 76.1 Lymphocytes % 11.2 Monocytes % 8.7 Eosinophils % 3.6 Basophils % 0.3 Absolute Neutrophils 5.36 Absolute Lymphocytes 0.79 L Absolute Monocytes 0.61 Absolute Eosinophils 0.25 Absolute Basophils 0.02 APTT 24.6 Sodium 136 Potassium 3.9 Chloride 102 Carbon Dioxide 27.8 Anion Gap 6.2 BUN 19 H Creatinine 0.68 L Estimated GFR/1.73 m2 >= 60.00 Glucose 105 H Calcium 9.5 Total Bilirubin 0.8 AST 26 ALT 39 Alkaline Phosphatase 133 H Total Protein 7.1 Albumin 2.5 L HPI General Mode of arrival: ambulatory . Date/Time Provider Initiated Documentation: 03/29/18 08:59 . Limitations to Documentation: no limitations . Information obtained by: patient . History of Present Illness 73 year old M presents to the emergency department with the chief complaint of Right hip pain after fall last night. , described as moderate, Quality is described as aching, and is localized to the right and lower extremity. Patient started experiencing this hour(s) and it has been constant. Immobilization improves symptom(s), Movement worsens symptoms . Patient notes no other symptoms.. Patient did receive the following treatments prior to arrival, NSAID Related Data Home Medications Medication Instructions Recorded Confirmed atorvastatin 40 mg PO HS tab-cap 08/11/15 03/13/18 metoprolol succinate 50 mg PO .12 NOON tab-cap 08/11/15 03/13/18 nitroglycerin [Nitrostat] 0.4 mg SUBLINGUAL DIRECTED 08/11/15 03/13/18 tab-cap omeprazole 20 mg PO DAILY tab-cap 08/11/15 03/13/18 isosorbide mononitrate 30 mg PO DAILY 01/17/17 03/13/18 lisinopril 5 mg PO DAILY tab-cap 01/17/17 03/13/18 magnesium oxide 400 mg PO DAILY 01/17/17 03/13/18 aspirin 162 mg PO BID #120 tabec 04/23/17 03/13/18 indomethacin 25 mg PO TID PRN 01/25/18 03/13/18 acetaminophen [Mapap Extra 1,000 mg PO Q8H PRN 01/30/18 03/13/18 Strength] Previous Rx's Medication Instructions Recorded aspirin 162 mg PO BID #120 tabec 04/23/17 Allergies Allergy/AdvReac Type Severity Reaction Status Date / Time celecoxib [From Celebrex] Allergy Intermediate LIP Verified 03/29/18 09:35 SWELLING, ITCHY PALMS penicillin V Allergy Intermediate hives Verified 03/29/18 09:35 oxycodone HCl [From Percocet] AdvReac Mild Nausea Verified 03/29/18 09:35 General Stated Complaint: Orthopedic PAULA: 4 Review of Systems Review of Systems 6 systems reviewed and otherwise negative [facility] Medical History Cortical cataract of left eye (Resolved) Nuclear sclerotic cataract of left eye (Resolved) Posterior subcapsular age-related cataract of left eye (Resolved) Surgical History Status post cataract extraction and insertion of intraocular lens of left eye (Chronic 02/13/18) Status post cataract extraction and insertion of intraocular lens of right eye (Chronic 01/30/18) EGD - MAC (04/15/16) colostomy take down sigmoid resection Family History Mother TIA (transient ischemic attack) Grandmother Colon cancer Glaucoma Social History Smoking/Tobacco Use Status: Never Exam Narrative Exam Narrative: GEN: awake, alert, oriented 3. Pleasant, well groomed, interactive. HEAD: Normocephalic, atraumatic ENT: Mucous membranes moist, oropharynx unremarkable, External ear exam unremarkable EYES: PERRL, EOMI NECK: Full ROM, no LOLA, no menigismus CHEST/RESP: Nontender, clear to auscultation bilateral, no wheeze/rhonchi/rales CARDIOVASCULAR: RRR, no murmur, rub tomy. 2+ Rad pulse bilateral ABDOMEN: Soft, nontender, no mass. +Bowel sounds EXT: 2+ DP bilaterally. Trace edema bilaterally. The right hip is tender to rotation. Patient is very guarded when attempting to move the right leg off the bed. Distal motor is 5 out of 5 bilaterally Neuro: Grossly normal neurologic exam, conversant, interactive. Psych: Speech fluent, thoughts congruent, affect normal Course Vital Signs Temperature 36.5 C 03/29/18 09:05 Pulse 86 03/29/18 09:05 Respiratory Rate 16 03/29/18 09:05 Blood Pressure 155/81 H 03/29/18 09:05 Pulse Oximetry 98 03/29/18 09:05 Temperature 36.5 C 03/29/18 09:05 Temperature Source Skin 03/29/18 09:05 Pulse 86 03/29/18 09:05 Respiratory Rate 16 03/29/18 09:05 Respiratory Effort 03/29/18 09:08 Blood Pressure 155/81 H 03/29/18 09:05 Blood Pressure Position Sitting 03/29/18 09:05 Pulse Oximetry 98 03/29/18 09:05 Oxygen Delivery Method Room Air 03/29/18 09:05 Oxygen Flow Rate 0 03/29/18 09:05 Pain Level 4 03/29/18 09:05
[2018-03-29 09:37] LABS: Abs Immature Grans 0.01 k/cumm (0.0-0.09); Absolute Basophil Count 0.02 k/cumm (0.0-0.2); Absolute Eosinophil Count 0.25 k/cumm (0.0-0.7); Absolute Lymphocyte Count 0.79 k/cumm (1.2-3.4); Absolute Monocyte Count 0.61 k/cumm (0.11-0.7); Absolute Neutrophil Count 5.36 k/cumm (1.2-6.7); Basophils % 0.3; Eosinophils % 3.6; HCT 42.2 % (40.0-50.0); Immature Grans % 0.1; Lymphocytes % 11.2; Mean Corp. HGB Concentration 33.2 g/dL (32.0-36.0); Mean Corpuscular Hemoglobin 29.2 pg (27.0-33.0); Mean Corpuscular Volume 87.9 fL (80-95); Mean Platelet Volume 10.9 fL (8.0-11.0); Monocytes % 8.7; Neutrophils % 76.1; Platelet Count 194 x1000/uL (130-400); RBC Distribution Width 14.6 % (11.8-14.1); White Blood Cell Count 7.04 k/cumm (4.4-10.8)
[2018-03-29] MEDS: Normal Saline 1,000 ML 150 ML IV ×2 (09:38→18:35)
[2018-03-29] MEDS: MORPHine 10 MG/ML VIAL 2 MG IVP (09:39)
[2018-03-29] MEDS: Normal Saline Flush 10 ML SYR IVP (09:39)
[2018-03-29 09:51] LABS: ALT 39 U/L (12-78); AST 26 U/L (15-37); Albumin 2.5 g/dL (3.4-5.0); Alkaline Phosphatase 133 U/L (46-116); Anion Gap 6.2 mmol/L (3-11); BUN 19 mg/dL (7-18); Bilirubin, Total 0.8 mg/dL (0.2-1.0); CO2 27.8 mmol/L (21.0-32.0); CREATININE 0.68 mg/dL (0.70-1.30); Calcium 9.5 mg/dL (8.5-10.1); Chloride 102 mmol/L (98-107); Glucose 105 mg/dL (70-100); Potassium 3.9 mmol/L (3.5-5.1); Sodium 136 mmol/L (136-145); Total Protein 7.1 g/dL (6.4-8.2)
[2018-03-29 09:55] LABS: PTT Activated 24.6 sec (21.0-31.4)
--- NOTE | 2018-03-29 09:58 | DI.RAD_ITS ---
SYMPTOMS/DIAGNOSIS: RIGHT HIP PAIN, H/O LATERAL MIGRATION OF PROSTHESIS RIGHT HIP: Four views were obtained. Examination was compared with previous examination of 03/13/18, which showed deformity of the proximal femoral metaphysis associated with increased angulation of femoral component of hip prosthesis. Thin lucency is noted adjacent to the tip of the femoral prosthesis, which appears to represent a nondisplaced cortical fracture; this was also probably present on the previous examination. No gross interval change in alignment. Acetabular component remains well seated.
[2018-03-29] MEDS: Ketorolac 15 MG/ML VIAL IVP (10:45)
[2018-03-29 11:14] VITALS: BP 125/60; PULSE 84; RESP 16; O2SAT 96
--- NOTE | 2018-03-29 11:36 | DI.CT_ITS ---
SYMPTOMS/DIAGNOSIS: PERIPROSTHETIC PAIN, ? FX RIGHT HIP CT: CT examination of the hip was performed utilizing multislice acquisition and multiplanar reconstruction. There is a right hip prosthesis in position. The femoral component of the prosthesis has previously been noted to be laterally displaced and angulated with associated periimplant lucency and small focus of linear nondisplaced cortical fracture at the tip of the femoral prosthesis. Alignment appears unchanged in comparison with previous radiographs. No abnormality of the acetabular component seen. No additional finding.
--- NOTE | 2018-03-29 13:47 | OCONE_ITS ---
Date of service: 03/29/18 Time of Service: 13:44 History of Present Illness Chief Complaint: R Hip Pain Narrative: Edward is a 73-year-old who I am quite familiar with. I have been following his right hip for pain in the setting of loosening, polyethylene wear, and osteolysis. In addition, I have performed a left anterior total hip arthroplasty and a left knee replacement. He has been having some increasing pain of the right hip. I saw him just a few weeks ago in the office for the right hip. There have been no gross changes but continued osteolysis seen around femoral component with some changes seen around the acetabulum. He was having increasing pain and was required to use a crutch occasionally. Unfortunately, he fell and landed directly onto the right knee last night around 8:00. He had immediate pain. The pain was in the groin. It has been persistent since this time. He has had to use crutches and is really unable to place any weight on the right leg. He reports a cramping sensation as well with any movement of the leg. He denies any numbness or tingling. He denies any fever or chills. He has had no shortness of breath nor chest pain. The location of the pain is within the groin and to a lesser extent the proximal femur. Consults Consult date: 03/29/18 Requesting physician: James Mitchell Consult Reason Right Hip Pain Assessment and Plan (1) Chronic hip pain after total replacement of right hip joint: Current visit: No Status: Acute Edward is a 73-year-old perez who has had the acute onset of worsening right hip and groin pain. This right hip is a known problem has been causing some pain and is on the verge of failure giving significant amounts of ostial lysis. He was scheduled for an appointment at [facility] in about 3 weeks. Unf ortunately, he landed directly onto the right knee transmitting force into the right hip. Since that time, he has been unable to bear any significant weight nor move the hip. The x-ray and CT scan is reassuring. However, I am concerned about possible fracture of the polythene component or subtle fracture not identified. He has never had signs of infection and this had been tested previously but I will check a C-reactive protein. He is unable to mobilize currently at this time. I will reach out to [facility] to evaluate possible options as I am not sure what the next step would be. Ultimately, he needs to have a revision of his right hip. His CRP is normal. After discussing the case with [facility], they agree he needs revision, but the soonest would be this weekend or next week. Edward will attempt to mobilizie with crutches/walker and with pain control. If he is able to mobilize enough, then he may discharge to home and he will be set up for hip revision. He has had a recent H&P performed in February which identified no areas for pre-op management. He has had no recent chest pain or need to use Nitro. He has preimary hypertension and GERD. Review of Systems Review of Systems All systems reviewed & are unremarkable except as noted in HPI and below [facility] Medical History Cortical cataract of left eye (Resolved) Nuclear sclerotic cataract of left eye (Resolved) Posterior subcapsular age-related cataract of left eye (Resolved) Surgical History Status post cataract extraction and insertion of intraocular lens of left eye (Chronic 02/13/18) Status post cataract extraction and insertion of intraocular lens of right eye (Chronic 01/30/18) EGD - MAC (04/15/16) colostomy take down sigmoid resection Family History Mother TIA (transient ischemic attack) Grandmother Colon cancer Glaucoma Social History Smoking/Tobacco Use Status: Never Exam Const General: cooperative, healthy appearing, well groomed and in distress mild Extrem Other: Evaluation of the right lower extremity shows no overlying skin changes. There is no ecchymosis. There may be some swelling seen proximally but it is hard to say. I palpate no masses or signs of hernia. There is some mild pain to palpation. There is some pain to palpation over the proximal, lateral femur but not exquisitely so. He has no pain along the leg itself or the knee. He really tolerates no motion. I am unable to either logroll or flex the hip passively without exquisite pain. He points to the groin as the location of this pain. He endorses full sensation over both femoral and sciatic nerve distributions. His foot is warm well perfused. He has intact ankle dorsiflexion, ankle plantarflexion, great toe extension and great toe flexion. His calf is soft and without pain. It is difficult to examine the knee given the amount of pain is in at the level of the hip. There is no obvious break in the skin nor ecchymosis or swelling seen about the right knee. Results Last Vital Signs Temp 36.5 C 03/29/18 09:05 Pulse 84 03/29/18 11:14 Resp 16 03/29/18 11:14 BP 125/60 03/29/18 11:14 Pulse Ox 96 03/29/18 11:14 Labs : 03/29/18 09:30 03/29/18 09:30 Laboratory Results - last 24 hr 03/29/18 03/29/18 03/29/18 09:30 09:30 09:30 WBC 7.04 RBC 4.80 Hgb 14.0 Hct 42.2 MCV 87.9 MCH 29.2 MCHC 33.2 RDW 14.6 H Plt Count 194 MPV 10.9 Immature Gran % 0.1 Neutrophils % 76.1 Lymphocytes % 11.2 Monocytes % 8.7 Eosinophils % 3.6 Basophils % 0.3 Absolute Neutrophils 5.36 Absolute Lymphocytes 0.79 L Absolute Monocytes 0.61 Absolute Eosinophils 0.25 Absolute Basophils 0.02 APTT 24.6 Sodium 136 Potassium 3.9 Chloride 102 Carbon Dioxide 27.8 Anion Gap 6.2 BUN 19 H Creatinine 0.68 L Estimated GFR/1.73 m2 >= 60.00 Glucose 105 H Calcium 9.5 Total Bilirubin 0.8 AST 26 ALT 39 Alkaline Phosphatase 133 H Total Protein 7.1 Albumin 2.5 L Imaging Imaging Studies: X-ray of the right hip shows a laterally migrated femoral component with lysis around the femoral stem, proximally to the trochanter, and smaller areas around the acetabulum. There is asymmetry with the position of the femoral head within the acetabular component. There is no true fracture seen. CT scan of the right hip and pelvis demonstrates the above findings. The very distal aspect of the stem seems to be associated with a small crack in the lateral cortex of the femur but no complete fracture is seen. There are areas of lysis around the femoral component and the acetabulum. Again, there is no clear fracture identified in the acetabular component or within the proximal femur. Significant amounts of heterotopic ossification is present. The femoral head is nearly articulating with the metal of the acetabular component but I do not see any shadows suggesting a displaced polyethylene component or a broken femoral neck.
[2018-03-29 14:10] LABS: C-Reactive Protein 0.23 mg/dL (0.0-0.3)
[2018-03-29 16:06] LABS: ESR 10 MM/HR (1-20)
[2018-03-29 16:30] VITALS: BP 131/67; PULSE 84; RESP 18; TEMP 36.8; O2SAT 96
[2018-03-29 17:00] VITALS: BP 134/65; PULSE 94; RESP 20; TEMP 36.3; O2SAT 98
[2018-03-29 17:21] VITALS: BP 134/65; PULSE 94; RESP 20; TEMP 36.3; O2SAT 98
--- NOTE | 2018-03-29 17:45 | NUR.NOTE ---
Patient admitted to the unit from ER. He gave history of falling yesterday while at home yesterday does state he is having spasms to the affected right leg. Patient is conscious and alert, breathing spontaneously on room air. Redness noted to the cheeks and nose. Chest clear, abdomen soft nontender to touch, well healed scar noted to the left knee. Pain to the right groin area but no abvious deformity noted. Pt noted with TEDS on bilateral pedal oedma to the lower extremities.
[2018-03-29] MEDS: Acetaminophen 500 MG TAB 1000 MG PO (19:43)
[2018-03-29 20:12] VITALS: BP 142/70; PULSE 88; RESP 18; TEMP 36.1; O2SAT 96
[2018-03-29] MEDS: Atorvastatin 40 MG TAB PO (21:54)
[2018-03-29] MEDS: Diazepam 5 MG TAB PO (21:54)
[2018-03-30 00:09] VITALS: BP 160/81; PULSE 88; RESP 18; TEMP 36.4; O2SAT 98
[2018-03-30] MEDS: Normal Saline 1,000 ML 150 ML IV ×2 (01:00→08:07)
[2018-03-30] MEDS: Ketorolac 15 MG/ML VIAL IVP ×2 (08:34→14:15)
[2018-03-30] MEDS: Isosorbide Mononitrate 30 MG TABCR PO (08:35)
[2018-03-30] MEDS: Omeprazole 20 MG CAPCR PO (08:35)
[2018-03-30] MEDS: Magnesium Oxide 400 MG TAB PO (08:35)
[2018-03-30] MEDS: Acetaminophen 500 MG TAB 1000 MG PO ×2 (08:35→14:14)
[2018-03-30] MEDS: Lisinopril 5 MG TAB PO (08:35)
[2018-03-30] MEDS: Normal Saline Flush 10 ML SYR IVP ×2 (08:38→14:15)
--- NOTE | 2018-03-30 09:32 | PT.INIE ---
Date of service: 03/30/18 Time of Service: 09:32 PT Notes Inpatient Physical Therapy Evaluation Date: 03/30/2018 Referring Doctor: Emiliano Du MD PT Orders: PT CONSULT: S/P fall with periprosthetic right hip fracture, surgery next week. TDWB RLE?walker or crutches Precautions: TDWB R LE, fall precautions Patient Profile/Admitting Diagnosis: Patient is a 73-year-old male experiencing lateral migration of right hip prosthesis of RUDOLPH and osteolysis around for a femoral component, patient sustained a fall 2011 landing on right knee causing groin pain, patient admitted to [facility] for pain control and imaging, CT scan displays non-displaced cortical fracture tip of right femoral prosthesis. Per orthopedics patient will have to have RUDOLPH revision at [facility] next week. 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 Baseline mobility independent gait with no device, occasionally uses a cane, independent with ADLS Equipment owned/DME: cane, FWW, crutches, shower chair, commode, grab bars in bathroom Subjective: Patient lying in bed states he was able to get up with nursing last night, agreeable to PT consult. States he can move okay as long as he does not have spasms. Objective: General Observation: K pad heat to right hip Mental Status: A and O x3 Pain: 5/10 pain right hip with movement, RN notified Bed Mobility/Transfers: Patient instructed in touchdown weightbearing right lower extremity for transfers, use axillary crutches at all times. Patient states he prefers crutches over walker. Supine to sit: Independent, patient using upper extremities to assist right lower extremity to edge of bed Sit to stand: Independent with axillary crutches Stand to sit: Independent Bed to chair: Independent with axillary crutches Gait: Independent with axillary crutches, touchdown weightbearing right lower extremity, 200 feet. Patient instructed in decreasing stride length and lynda in order to maintain weightbearing precautions, patient able to perform without difficulty. Stairs: Up/down 5 steps with single railing and crutch, touchdown weightbearing right lower extremity, supervision. Patient states he feels he could perform 10 steps to get into home setting, once inside patient does not need to do stairs and can stay on one level. Patient returned to room up in chair after gait and stair training completed. Balance: Static Sitting: Normal Dynamic Sitting: Normal Static Standing: Fair Dynamic Standing: Fair, requires use of crutches for stability Special Tests: Mobility Limitations Standardized Measure [facility] AM-PAC 6 clicks Basic Mobility Inpatient Short Form: Raw Score: 18 standardized Score: 43.63 CMS Score: 46.58% CMS Modifier: CK Informed Consent/Education: Patient instructed in purpose of PT consult and plan of care. Assessment: Patient is a 73-year-old male experiencing lateral migration of right hip prosthesis of RUDOLPH and osteolysis around for a femoral component, patient sustained a fall 2012 landing on right knee causing groin pain, patient admitted to [facility] for pain control and imaging, CT scan displays non-displaced cortical fracture tip of right femoral prosthesis. Patient presents with the following impairment level findings: Pain and muscle spasms in right hip and lower extremity with movements, limiting his ability to lift his leg into and out of bed requiring upper body support and requiring use of axillary crutches for stability with gait and stairs to maintain touchdown weightbearing precautions right lower external and prevent falls. Patient was able to perform bed mobility, transfers in room and to chair with use of axillary crutches independently with increased time to allow for movement due to TDWB status and pain, performed gait and stair training independently. Patient is at functional level to return to home setting, with plan to return to [facility] for right RUDOLPH revision Impairments are contributing to the following functional limitations: AMPAC score CMS Score: 46.58% Patient is assessed as a Low 64001 complexity based on the following: History: See above Examination: See above Presentation: Stable Decision Making: AMPAC score CMS Score: 46.58% Goals: Not applicable Plan of Care/Treatment Plan: PT eval only DISCHARGE RECOMMENDATIONS: Home patient has all DME TREATMENT CODE/TIME: 26 minutes, IE 9:30 AM G Codes in the area mobility of walking and moving around: current status [id number] CK; projected status GP G8979- CK Discharge status (if discharging) GP G8980 CK based on [facility] scores Shital Bowen PT Disclaimer: This note was created using DOZ voice recognition software. It was reviewed for major content. However, there may be multiple small discrepancies and errors due to the voice recognition aspects of the software.
--- NOTE | 2018-03-30 09:37 | IN_ITS ---
Date of service: 03/30/18 Time of Service: 09:32 PT Notes Inpatient Physical Therapy Evaluation Date: 03/30/2018 Referring Doctor: Emiliano Du MD PT Orders: PT CONSULT: S/P fall with periprosthetic right hip fracture, surgery next week. 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 Per orthopedics patient will have to have RUDOLPH revision at [facility] next week. 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 Baseline mobility independent gait with no device, occasionally uses a cane, independent with ADLS Equipment owned/DME: cane, FWW, crutches, shower chair, commode, grab bars in bathroom Subjective: Patient lying in bed states he was able to get up with nursing last night, agreeable to PT consult. States he can move okay as long as he does not have spasms. Objective: General Observation: K pad heat to right hip Mental Status: A and O x3 Pain: 5/10 pain right hip with movement, RN notified Bed Mobility/Transfers: Patient instructed in touchdown weightbearing right lower extremity for transfers, use axillary crutches at all times. Patient states he prefers crutches over walker. Supine to sit: Independent, patient using upper extremities to assist right lower extremity to edge of bed Sit to stand: Independent with axillary crutches Stand to sit: Independent Bed to chair: Independent with axillary crutches Gait: Independent with axillary crutches, touchdown weightbearing right lower extremity, 200 feet. Patient instructed in decreasing stride length and lynda in order to maintain weightbearing precautions, patient able to perform without difficulty. Stairs: Up/down 5 steps with single railing and crutch, touchdown weightbearing right lower extremity, supervision. Patient states he feels he could perform 10 steps to get into home setting, once inside patient does not need to do stairs and can stay on one level. Patient returned to room up in chair after gait and stair training completed. Balance: Static Sitting: Normal Dynamic Sitting: Normal Static Standing: Fair Dynamic Standing: Fair, requires use of crutches for stability Special Tests: Mobility Limitations Standardized Measure [facility] AM-PAC 6 clicks Basic Mobility Inpatient Short Form: Raw Score: 18 standardized Score: 43.63 CMS Score: 46.58% CMS Modifier: CK Informed Consent/Education: Patient instructed in purpose of PT consult and plan of care. 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 Patient presents with the following impairment level findings: Pain and muscle spasms in right hip and lower extremity with movements, limiting his ability to lift his leg into and out of bed requiring upper body support and requiring use of axillary crutches for stability with gait and stairs to maintain touchdown weightbearing precautions right lower external and prevent falls. Patient was able to perform bed mobility, transfers in room and to chair with use of axillary crutches independently with increased time to allow for movement due to TDWB status and pain, performed gait and stair training independently. Patient is at functional level to return to home setting, with plan to return to [facility] for right RUDOLPH revision Impairments are contributing to the following functional limitations: AMPAC score CMS Score: 46.58% Patient is assessed as a Low 30109 complexity based on the following: History: See above Examination: See above Presentation: Stable Decision Making: AMPAC score CMS Score: 46.58% Goals: Not applicable Plan of Care/Treatment Plan: PT eval only DISCHARGE RECOMMENDATIONS: Home patient has all DME TREATMENT CODE/TIME: 26 minutes, IE 9:30 AM G Codes in the area mobility of walking and moving around: current status [id number] CK; projected status GP G8979- CK Discharge status (if discharging) GP G8980 CK based on [facility] scores Shital Bowen PT Disclaimer: This note was created using [employer] voice recognition software. It was reviewed for major content. However, there may be multiple small discrepancies and errors due to the voice recognition aspects of the software.
--- NOTE | 2018-03-30 09:59 | W.PM.DS.N ---
Date of service: 03/30/18 Time of Service: 09:59 DS: Diagnosis Discharge Diagnosis (1) Chronic hip pain after total replacement of right hip joint: Status: Acute (2) Periprosthetic fracture around internal prosthetic right hip joint: Status: Acute Discharge Plan Disposition Patient Disposition: HOME Condition: Stable Discharge Details Chief Complaint: Orthopedic Reason For Visit: RIGHT HIP PAIN Admit Date/Time: 03/29/18 16:11 Admit Provider: Emiliano Du Attending Provider: Emiliano Du Primary Care Provider: Carmelo Barrientos ED Provider: James Mitchell Hospital Course Hospital Course: Edward was admitted for pain control and physical therapy after fall and likely periprosthetic fracture about the right hip. He did well with the Valium and with heat, decreasing the spasms and their intensity. He was able to mobilize with PT and his TDWB precautions. He was deemed safe for discharge home with TDWB precautions and using two crutches or walker. Preoperative EKG and Chest X-ray were performed and showed no abnormalities. Home Meds and New Rx's Prescriptions: New diazepam [Valium] 5 mg Tablet 5 mg PO TID PRN PRNQty: 10 RF: 0 ibuprofen 600 mg tablet 600 mg PO TID PRN (Reason: pain) Qty: 60 RF: 3 Continued omeprazole 10 MG capsule,delayed release(DR/EC) 20 mg PO DAILY RF: 0 nitroglycerin [Nitrostat] 0.4 MG tablet, sublingual 0.4 mg Sublingual DIRECTED RF: 0 atorvastatin 40 MG tablet 40 mg PO HS RF: 0 metoprolol succinate 50 MG tablet extended release 24 hr 50 mg PO .12 NOON RF: 0 isosorbide mononitrate 20 MG tablet 30 mg PO DAILY RF: 0 magnesium oxide 400 MG tablet 400 mg PO DAILY RF: 0 lisinopril 5 MG tablet 5 mg PO DAILY RF: 0 indomethacin 25 mg Capsule 25 mg PO TID PRNRF: 0 Changed aspirin 81 MG tablet,delayed release (DR/EC) 81 mg PO DAILY Qty: 120 RF: 0 acetaminophen [Mapap Extra Strength] 500 MG tablet 1,000 mg PO TID Qty: 90 RF: 0 Discharge Instructions Instructions: Contusion in Adults (GEN) Additional Instructions: Activity: You should keep only the weight of the leg on the right side. Avoid placing much weight on the right leg using the crutches at all times. You should avoid any activity which causes pain. You may massage and apply ice/heat to the right leg. Medicaitons: - You should decrease your Aspirin dose due to the upcoming surgery. - You should take Tylenol and Ibuprofen as baseline pain control methods. - You have been prescribed Diazepam for spasm and pain control. This medication will make you very sleepy. Follow-up: - You will get called by [facility] for surgery next week. If you have any further questions, please contact Dr. Du directly. Stand Alone Forms: Nursing Discharge Form Referrals: [facility] [Outside] (Upcoming revision right hip surgery) Emiliano Du MD [ [facility] STAFF PHYSICIAN] - Activity:: Touchdown weight bearing - right leg Equipment/Supplies:: Crutches Diet:: As Tolerated Discharge Orders Discharge Orders: Discharge Order (Routine); Ordered 03/30/18 Ordered By: Emiliano Du DS: Data Vitals/I&O Vitals and I&O: Vital Signs Temperature 36.4 C L 03/30/18 00:09 Temperature Source Tympanic 03/30/18 00:09 Pulse 88 03/30/18 00:09 Pulse Rhythm Regular 03/30/18 01:15 Respiratory Rate 18 03/30/18 00:09 Respiratory Effort Non-Labored 03/30/18 01:15 Respiratory Depth Normal 03/30/18 01:15 Respiratory Pattern Normal 03/30/18 01:15 Blood Pressure 160/81 H 03/30/18 00:09 Blood Pressure Position Sitting 03/29/18 09:05 Pulse Oximetry 98 03/30/18 00:09 Oxygen Delivery Method Room Air 03/30/18 00:09 Oxygen Flow Rate 0 03/30/18 00:09 Pain Level 3 03/30/18 08:35 Comment 03/30/18 00:09 Intake & Output 03/29/18 03/29/18 03/30/18 11:59 23:59 11:59 Intake Total 500 / 1510 1010 / 1510 2562.5 / 2562.5 Output Total 1500 / 1500 Balance 500 / 1510 1010 / 1510 1062.5 / 1062.5 Weight 99.79 kg 100 kg Intake: IV 500 / 1510 1010 / 1510 1962.5 / 1962.5 Oral 600 / 600 Output: Urine 1500 / 1500 Other: Urine Color Yellow Urine Appearance Clear Urine Odor Normal Voiding Methods Urinal Labs on day of discharge: Labs from last 24 hours 03/29/18 03/29/18 09:30 09:30 WBC 7.04 RBC 4.80 Hgb 14.0 Hct 42.2 MCV 87.9 MCH 29.2 MCHC 33.2 RDW 14.6 H Plt Count 194 MPV 10.9 Immature Gran % 0.1 Neutrophils % 76.1 Lymphocytes % 11.2 Monocytes % 8.7 Eosinophils % 3.6 Basophils % 0.3 Absolute Neutrophils 5.36 Absolute Lymphocytes 0.79 L Absolute Monocytes 0.61 Absolute Eosinophils 0.25 Absolute Basophils 0.02 ESR 10 Sodium 136 Potassium 3.9 Chloride 102 Carbon Dioxide 27.8 Anion Gap 6.2 BUN 19 H Creatinine 0.68 L Estimated GFR/1.73 m2 >= 60.00 Glucose 105 H Calcium 9.5 Total Bilirubin 0.8 AST 26 ALT 39 Alkaline Phosphatase 133 H C-Reactive Protein 0.23 Total Protein 7.1 Albumin 2.5 L [facility] Medical History Cortical cataract of left eye (Resolved) Nuclear sclerotic cataract of left eye (Resolved) Posterior subcapsular age-related cataract of left eye (Resolved) Surgical History Status post cataract extraction and insertion of intraocular lens of left eye (Chronic 02/13/18) Status post cataract extraction and insertion of intraocular lens of right eye (Chronic 01/30/18) EGD - MAC (04/15/16) colostomy take down sigmoid resection Family History Mother TIA (transient ischemic attack) Grandmother Colon cancer Glaucoma Social History Smoking/Tobacco Use Status: Never
--- NOTE | 2018-03-30 11:35 | PDOC.CMIN ---
- If Service Date Differs Date of service: 03/30/18 Time of Service: 11:35 Care Management Initial Assess REASON FOR HOSPITALIZATION:: Right hip pain. PAST MEDICAL HISTORY/PAST SURGICAL HISTORY:: HTN, Mild varicose veins, Nail fungus, ASCVD stents x2, Diverticulosis, S/P colostomy, Tubular adenoma, Palpitations S/P ablation, OA knee, Hypercholesterolemia, Anxiety. PREVIOUS FUNCTIONAL STATUS/SOCIAL/FAMILY SUPPORTS:: Pt resides with his Naz in [place]. Pt is indepedent at home he reports a supportive family. His two sons live close by and help him at home. He is indepedent at home with ADL's and transporation. CURRENT FUNCTIONAL STATUS:: Omari is alert and engaged with CM during the assessment. He states he will be discharged home today and will have follow up at [facility]. He anticipates he will have surgery on his right hip next week. He has a plan to manage pain per his report, and has all his equipment at home. ADVANCE DIRECTIVES:: None on file at [facility], he believes he was one at home. Has patient been provided with information about the portal?: Yes Did the patient sign up for the portal?: No (already enrolled) CODE STATUS:: Full Code INSURANCE COVERAGE / FINANCIAL ISSUES:: Medicare, BCBS CURRENT HOME/COMMUNITY SERVICES/EQUIPMENT:: Currently Pt has no services in the community. Pt has a cane, crutches, FWW, shower chair, and commode at home. PRIMARY CARE PHYSICIAN:: Carmelo Barrientos POTENTIAL DISCHARGE NEEDS:: Omari will be contacted by [facility] to scheudle procedure for right hip revision anticipate it will happen this coming week. Omari will contact with any concerns or questions after discharge. PATIENT/FAMILY EDUCATION NEEDS:: Discharge education, limitations and follow up plan of care, including ask me three and self management. ANTICIPATED BARRIERS TO DISCHARGE:: None identified TRANSPORTATION:: Via car with family at time of discharge PLAN:: Omari will be discharged home today. He will follow up with [facility] and they will contact him with a date and time to be there. Anticipate no additional servcies at this time and he has all his own DME equipment.
[2018-03-30] MEDS: Metoprolol CR 50 MG TABCR PO (12:02)
--- NOTE | 2018-03-30 13:02 | DI.RAD_ITS ---
SYMPTOMS/DIAGNOSIS: PREOPERATIVE EVALUATION CHEST: A small linear density projected over the left lower lobe is consistent with a region of atelectasis. The lungs appear otherwise well expanded and free of infiltrate. There is no pleural effusion. The heart is top limits of normal in size. The hilar structures, mediastinum and tracheal air column are well maintained. SUMMARY: Small region of atelectasis or scarring involving the left lung base. Border cardiomegaly, no evidence of congestive failure or pneumonia.
--- NOTE | 2018-03-30 13:13 | INITIAL_ITS ---
- If Service Date Differs Date of service: 03/30/18 Time of Service: 11:35 Care Management Initial Assess REASON FOR HOSPITALIZATION:: Right hip pain. PAST MEDICAL HISTORY/PAST SURGICAL HISTORY:: HTN, Mild varicose veins, Nail fungus, ASCVD stents x2, Diverticulosis, S/P colostomy, Tubular adenoma, Palpitations S/P ablation, OA knee, Hypercholesterolemia, Anxiety. PREVIOUS FUNCTIONAL STATUS/SOCIAL/FAMILY SUPPORTS:: Pt resides with his Naz in [place]. Pt is indepedent at home he reports a supportive family. His two sons live close by and help him at home. He is indepedent at home with ADL's and transporation. CURRENT FUNCTIONAL STATUS:: Omari is alert and engaged with CM during the assessment. He states he will be discharged home today and will have follow up at [facility]. He anticipates he will have surgery on his right hip next week. He has a plan to manage pain per his report, and has all his equipment at home. ADVANCE DIRECTIVES:: None on file at [facility], he believes he was one at home. Has patient been provided with information about the portal?: Yes Did the patient sign up for the portal?: No (already enrolled) CODE STATUS:: Full Code INSURANCE COVERAGE / FINANCIAL ISSUES:: Medicare, BCBS CURRENT HOME/COMMUNITY SERVICES/EQUIPMENT:: Currently Pt has no services in the community. Pt has a cane, crutches, FWW, shower chair, and commode at home. PRIMARY CARE PHYSICIAN:: Carmelo Barrientos POTENTIAL DISCHARGE NEEDS:: Omari will be contacted by [facility] to scheudle procedure for right hip revision anticipate it will happen this coming week. Omari will contact with any concerns or questions after discharge. PATIENT/FAMILY EDUCATION NEEDS:: Discharge education, limitations and follow up plan of care, including ask me three and self management. ANTICIPATED BARRIERS TO DISCHARGE:: None identified TRANSPORTATION:: Via car with family at time of discharge PLAN:: Omari will be discharged home today. He will follow up with [facility] and they will contact him with a date and time to be there. Anticipate no additional servcies at this time and he has all his own DME equipment.
== END 2018-03-30 14:54 | disposition home or self-care (01) ==
LOC: ER 16:13 → MS 17:15
PROVIDERS: Admitting Provider Student in an Organized Health Care Education/Training Program; Emergency Provider Emergency Medicine; PCP Family Medicine; Visit Provider Student in an Organized Health Care Education/Training Program
DX: S72.001A Fracture of unspecified part of neck of right femur, initial encounter for closed fracture (principal); M97.01XA Periprosthetic fracture around internal prosthetic right hip joint, initial encounter; T84.060A Wear of articular bearing surface of internal prosthetic right hip joint, initial encounter; T84.030A Mechanical loosening of internal right hip prosthetic joint, initial encounter; G89.29 Other chronic pain; M25.551 Pain in right hip; W19.XXXA Unspecified fall, initial encounter; Z96.652 Presence of left artificial knee joint; Z96.642 Presence of left artificial hip joint
CPT/HCPCS: 36415; 80053; 85652; 96361; 96374; 96375; 97161; 99217; 99220; 99238; 99253; 99285; 71045; 73502; 73700; 85025; 85730; 86140; 93005; 93010; 99284; G0378; G8978; J1885; J2270